=== PATIENT | female | born 1995 | race Caucasian/White ===

== ENCOUNTER 2019-01-25 10:08 | Outpatient (CLI) | payer OTHER, MEDICAID ==
[2019-01-25 11:20] LABS: ADD MAN DIFF? NO
[2019-01-25 11:22] LABS: WHITE BLOOD COUNT 7.4 10^3/ul (4.8-10.8)
[2019-01-25 11:22] LABS: BASOPHILS % 0.5 % (0.0-2.0); EOSINOPHILS # 0.1 10^3/ul (0.0-0.5); EOSINOPHILS % 0.9 % (0.0-7.0); HEMATOCRIT 28.7 % (37.0-47.0); HEMOGLOBIN 8.5 g/dl (12.0-16.0); LYMPHOCYTES # 1.6 10^3/ul (0.8-2.9); LYMPHOCYTES % 21.7 % (15.0-51.0); MEAN CORPUSCULAR HEMOGLOBIN 22.3 pg (29.0-33.0); MEAN CORPUSCULAR HGB CONC 29.6 g/dl (32.0-37.0); MEAN CORPUSCULAR VOLUME 75.1 fl (82.0-101.0); MEAN PLATELET VOLUME 10.5 fl (7.4-10.4); MONOCYTE # 0.5 10^3/ul (0.3-0.9); MONOCYTES % 6.1 % (0.0-11.0); NEUTROPHIL # 5.2 10^3/ul (1.6-7.5); PLATELET COUNT 165 10^3/UL (140-415); RED BLOOD COUNT 3.82 10^6/ul (4.20-5.40); RED CELL DISTRIBUTION WIDTH 17.8 % (11.5-14.5)
[2019-01-25 11:40] LABS: PARTIAL THROMBOPLASTIN TIME 24.6 Sec (23.0-35.0)
[2019-01-25 11:49] LABS: ALANINE AMINOTRANSFERASE 7 IU/L (13-69); ALBUMIN 3.5 g/dl (3.3-4.9); ALBUMIN/GLOBULIN RATIO 1.12; ALKALINE PHOSPHATASE 110 IU/L (42-121); ANION GAP 7 (5-13); ASPARTATE AMINO TRANSFERASE 25 IU/L (15-46); BILIRUBIN,INDIRECT 0.3 mg/dl (0-1.1); BILIRUBIN,TOTAL 0.3 mg/dl (0.2-1.3); BLOOD UREA NITROGEN 12 mg/dl (7-20); CALCIUM 8.9 mg/dl (8.4-10.2); CARBON DIOXIDE 21 mmol/L (21-31); CHLORIDE 110 mmol/L (97-110); CREATININE 0.58 mg/dl (0.44-1.00); Estimated GFR > 60 mL/min (>60); GLUCOSE 73 mg/dl (70-220); POTASSIUM 4.2 mmol/L (3.5-5.1); SODIUM 138 mmol/L (135-144); TOTAL PROTEIN 6.6 g/dl (6.1-8.1)
== END 2019-01-25 13:03 | disposition home or self-care (01) ==
LOC: OBT 10:08 → L-D 10:08 → OBT 13:03
DX: O47.1 False labor at or after 37 completed weeks of gestation (principal); O36.8130 Decreased fetal movements, third trimester, not applicable or unspecified; Z3A.38 38 weeks gestation of pregnancy; O26.893 Other specified pregnancy related conditions, third trimester; N89.8 Other specified noninflammatory disorders of vagina
CPT/HCPCS: 76815; 76818; 80053; 85025; 85730

== ENCOUNTER 2019-01-26 17:49 | Inpatient (IN) | payer OTHER ==
[2019-01-26] MEDS ORDERED: CARBOPROST 250 MCG INJ IM (21:30)
[2019-01-26] MEDS ORDERED: BUTORPHANOL 1 MG INJ IV (21:30)
[2019-01-26] MEDS ORDERED: OXYTOCIN 30 UNITS/LR 500 ML IV (21:30)
[2019-01-26] MEDS ORDERED: LIDOCAINE 1% (MPF) 30 ML INJ INJ (21:30)
[2019-01-26] MEDS ORDERED: IBUPROFEN 600 MG TAB PO (21:30)
[2019-01-26] MEDS: LACTATED RINGER'S 1,000 ML IV (21:50)
[2019-01-26] MEDS: BUTORPHANOL 2 MG INJ IV (21:54)
[2019-01-26 22:59] LABS: ADD MAN DIFF? NO
[2019-01-26 23:01] LABS: BASOPHIL # 0.1 10^3/ul (0.0-0.1); BASOPHILS % 0.5 % (0.0-2.0); EOSINOPHILS % 0.4 % (0.0-7.0); HEMATOCRIT 29.8 % (37.0-47.0); HEMOGLOBIN 8.9 g/dl (12.0-16.0); LYMPHOCYTES # 2.3 10^3/ul (0.8-2.9); LYMPHOCYTES % 22.1 % (15.0-51.0); MEAN CORPUSCULAR HEMOGLOBIN 21.8 pg (29.0-33.0); MEAN CORPUSCULAR HGB CONC 29.9 g/dl (32.0-37.0); MEAN PLATELET VOLUME 11.4 fl (7.4-10.4); MONOCYTE # 0.5 10^3/ul (0.3-0.9); MONOCYTES % 5.2 % (0.0-11.0); NEUTROPHIL # 7.4 10^3/ul (1.6-7.5); NEUTROPHILS % 71.2 % (39.0-77.0); PLATELET COUNT 188 10^3/UL (140-415); RED BLOOD COUNT 4.08 10^6/ul (4.20-5.40); RED CELL DISTRIBUTION WIDTH 17.8 % (11.5-14.5)
[2019-01-26 23:01] LABS: WHITE BLOOD COUNT 10.4 10^3/ul (4.8-10.8)
[2019-01-26 23:21] LABS: INR 0.85; PARTIAL THROMBOPLASTIN TIME 27.4 Sec (23.0-35.0); PROTIME 11.7 Sec (11.9-14.9); PT RATIO 0.9
[2019-01-26 23:50] LABS: HEPATITIS B SURFACE ANTIGEN NEGATIVE (NEGATIVE)
[2019-01-27] MEDS: BUTORPHANOL 2 MG INJ IV (00:32)
[2019-01-27] MEDS: LACTATED RINGER'S 1,000 ML IV ×2 (00:33→06:25)
[2019-01-27] MEDS ORDERED: FENTAnyl 2MCG/ML-ROPIV 0.2% 100 ML (01:16)
[2019-01-27] MEDS ORDERED: NALOXONE (0.4 MG/ML) INJ IV (01:30)
[2019-01-27] MEDS ORDERED: DIPHENHYDRAMINE 50 MG INJ IV (01:30)
[2019-01-27] MEDS: FENTAnyl 2MCG/ML-ROPIV 0.2% 100 ML BAG EPI ×2 (01:47→07:24)
[2019-01-27] MEDS: ONDANSETRON 4 MG INJ IV (06:25)
[2019-01-27] MEDS: OXYTOCIN 30 UNITS/LR 500 ML IV ×4 (08:38→21:11)
[2019-01-27] MEDS: METHYLERGONOVINE 0.2 MG INJ IM (12:17)
[2019-01-27] MEDS: MISOPROSTOL 200 MCG TAB PR (12:18)
[2019-01-27] MEDS: MINERAL OIL LIGHT 10 ML VIAL TOP ×2 (12:19→21:10)
[2019-01-27] MEDS ORDERED: OXYTOCIN 30 UNITS/LR 500 ML IV (13:30)
[2019-01-27] MEDS ORDERED: DIBUCAINE 1% 30 GM OINT TOP (13:30)
[2019-01-27] MEDS ORDERED: MISOPROSTOL 200 MCG TAB PR (13:30)
[2019-01-27] MEDS ORDERED: IBUPROFEN 600 MG TAB PO (13:30)
[2019-01-27] MEDS ORDERED: ONDANSETRON 4 MG INJ IV (13:30)
[2019-01-27] MEDS ORDERED: CARBOPROST 250 MCG INJ IM (13:30)
[2019-01-27] MEDS ORDERED: METHYLERGONOVINE 0.2 MG INJ IM (13:30)
[2019-01-27] MEDS ORDERED: ACETAMINOPHEN 325 MG TAB PO ×2 (13:30)
[2019-01-27] MEDS ORDERED: CEFAZOLIN 1 GM/50 ML (PMX) 50 ML IVPB ×2 (14:00→14:30)
[2019-01-27] MEDS: CEFAZOLIN 2 GM/50 ML (PMX) 50 ML IVPB (14:06)
[2019-01-27 15:05] LABS: RAPID PLASMA REAGIN NONREACTIVE (NR)
[2019-01-27] MEDS: BENZOCAINE 20% 56 ML SPRAY TOP (16:10)
[2019-01-27] MEDS: LANOLIN HPA 1 PKT TOP (16:10)
[2019-01-27] MEDS: WITCH HAZEL/GLYCERIN PAD PR (16:10)
[2019-01-27] MEDS: LACTATED RINGER'S 1,000 ML IV* ×2 (18:18→21:13)
[2019-01-27] MEDS: CEFAZOLIN 1 GM/50 ML (PMX) 50 ML IVPB (20:28)
[2019-01-28] MEDS: LACTATED RINGER'S 1,000 ML IV* (06:34)
[2019-01-28 07:49] LABS: ADD MAN DIFF? NO
[2019-01-28 07:54] LABS: BASOPHILS % 0.3 % (0.0-2.0); EOSINOPHILS # 0.1 10^3/ul (0.0-0.5); EOSINOPHILS % 0.8 % (0.0-7.0); HEMOGLOBIN 8.1 g/dl (12.0-16.0); LYMPHOCYTES # 2.1 10^3/ul (0.8-2.9); LYMPHOCYTES % 19.8 % (15.0-51.0); MEAN CORPUSCULAR HEMOGLOBIN 21.9 pg (29.0-33.0); MEAN PLATELET VOLUME 10.9 fl (7.4-10.4); MONOCYTE # 0.9 10^3/ul (0.3-0.9); MONOCYTES % 8.6 % (0.0-11.0); NEUTROPHIL # 7.2 10^3/ul (1.6-7.5); PLATELET COUNT 149 10^3/UL (140-415); RED CELL DISTRIBUTION WIDTH 18.4 % (11.5-14.5)
[2019-01-28 07:54] LABS: WHITE BLOOD COUNT 10.3 10^3/ul (4.8-10.8)
[2019-01-28] MEDS: MAGNESIUM HYDROXIDE 30ML CUP PO (09:37)
[2019-01-28] MEDS: SENNA/DOCUSATE NA (8.6MG/50MG) TAB PO ×2 (09:37→21:57)
[2019-01-28] MEDS: IBUPROFEN LIQUID (PED) 20 MG/ML CUP PO (21:58)
[2019-01-29] MEDS: IBUPROFEN LIQUID (PED) 20 MG/ML CUP PO ×2 (06:08→13:08)
[2019-01-29] MEDS: BISACODYL 10 MG SUPP PR (09:49)
[2019-01-29] MEDS: MAGNESIUM HYDROXIDE 30ML CUP PO (09:50)
[2019-01-29] MEDS: WITCH HAZEL/GLYCERIN PAD PR (12:34)
[2019-01-29] MEDS: BENZOCAINE 20% 56 ML SPRAY TOP (12:34)
== END 2019-01-29 14:25 | disposition home or self-care (01) | DRG 807 ==
LOC: OBT 17:49 → PP1 01-27 14:43 → L-D 17:50 → OBT 20:50 → L-D 20:50
PROVIDERS: Obstetrics & Gynecology
PROC: 10E0XZZ Delivery of Products of Conception, External Approach (ICD-10-PCS; principal; 2019-01-27)
PROC: 0HQ9XZZ Repair Perineum Skin, External Approach (ICD-10-PCS; 2019-01-27)
PROC: 10907ZC Drainage of Amniotic Fluid, Therapeutic from Products of Conception, Via Natural or Artificial Opening (ICD-10-PCS; 2019-01-27)
DX: O69.81X0 Labor and delivery complicated by cord around neck, without compression, not applicable or unspecified (principal); Z37.0 Single live birth; O70.9 Perineal laceration during delivery, unspecified; O99.02 Anemia complicating childbirth; D50.9 Iron deficiency anemia, unspecified; Z3A.38 38 weeks gestation of pregnancy
CPT/HCPCS: 62319; 76818; 85025; 85610; 85730; 86592; 86850; 86900; 86901; 87340